=== PATIENT | female | born 1970 | race Caucasian/White ===

== ENCOUNTER 2017-04-24 21:07 | Emergency (ER) | payer MEDICAID ==
[~2017-04-24] VITALS: Ht 160 cm; Wt 85.3 kg
[~2017-04-24 21:07] MED LIST: AMIT100T PO; DICY10CA3 PO; GABA300C10 PO; HYDR25TA11 PO; LEVO25TA4 PO; LINA290C PO; PRIM50TA PO; PROM25SU34 RC; SIMV40TA3 PO; SUMA50TA4 PO; TOPI100T24 PO
[2017-04-24] MEDS ORDERED: KETOROLAC 30 MG/1 ML IVPush ONE (22:30)
[2017-04-24] MEDS ORDERED: SODIUM CHLORIDE 0.9% 1,000ML IVBOLUS ONE (22:30)
[2017-04-24] MEDS ORDERED: LORazepam 2 MG/ML, 1ML IVPush ONE (22:30)
[2017-04-24 22:53] LABS: BLOOD UREA NITROGEN 10 mg/dL (7-18)
[2017-04-24] MEDS ORDERED: LORazepam 2 MG/ML, 1ML ONE (22:56)
[2017-04-24] MEDS ORDERED: KETOROLAC 30 MG/1 ML ONE (22:56)
[2017-04-24 23:00] LABS: IS PT STATUS REG ER OR PRE ER? YES
[2017-04-24 23:43] LABS: PATH.CAST-FLAG NOT PRESENT; SPERM-FLAG NOT PRESENT; SRC-FLAG NOT PRESENT; XTAL-FLAG NOT PRESENT; YLC-FLAG NOT PRESENT
[2017-04-24 23:45] VITALS: BP 107/66
== END 2017-04-25 00:56 | disposition home or self-care (01) ==
LOC: ED 23:59
DX: E86.0 Dehydration (principal); M54.5 Low back pain; E78.00 Pure hypercholesterolemia, unspecified; J45.909 Unspecified asthma, uncomplicated; G89.29 Other chronic pain; M54.9 Dorsalgia, unspecified; I48.91 Unspecified atrial fibrillation
CPT/HCPCS: 36415; 80048; 81001; 82040; 84443; 84484; 85025; 87077; 87086; 87186; 93005; 96361; 96374; 96375; 99285; J1885; J2060; J7030

== ENCOUNTER 2017-06-11 16:10 | Emergency (ER) | payer MEDICAID ==
[~2017-06-11] VITALS: Ht 160 cm; Wt 84.0 kg
[2017-06-11 16:15] VITALS: BP 130/87
[2017-06-11] MEDS ORDERED: HYDROcodone/APAP 5/325 TABLET ONE (16:42)
[2017-06-11] MEDS ORDERED: HYDROcodone/APAP 5/325 TABLET PO ONE (17:00)
== END 2017-06-11 17:52 | disposition home or self-care (01) ==
LOC: ED 17:29
DX: S90.31XA Contusion of right foot, initial encounter (principal); J45.909 Unspecified asthma, uncomplicated; E78.00 Pure hypercholesterolemia, unspecified; W50.0XXA Accidental hit or strike by another person, initial encounter; Y93.89 Activity, other specified; Y92.410 Unspecified street and highway as the place of occurrence of the external cause; Y99.8 Other external cause status
CPT/HCPCS: 99284